=== PATIENT | male | born 1940 | race Two or more races ===

== ENCOUNTER 2016-06-10 03:50 | Emergency (ER) | payer OTHER ==
[~2016-06-10] VITALS: Ht 160 cm; Wt 59.0 kg
[2016-06-10] MEDS ORDERED: ONDANSETRON HCL 4MG/2ML VIAL IV STA (04:10)
[2016-06-10] MEDS ORDERED: SODIUM CHLORIDE 0.9% 1,000 ML IV ONE (04:10)
[2016-06-10] MEDS ORDERED: MORPHINE SULFATE 4 MG/ML CPJ (NOT FOR IM USE) IV STA (04:10)
[2016-06-10 04:33] LABS: BASOPHILS % 0.4 % (0.0-2.0); DIFFERENTIAL COMMENT 0; EOSINOPHILS % 4.5 % (0.0-5.0); HEMATOCRIT. 26.2 % (42.0-52.0); HEMOGLOBIN. 9.2 g/dL (14.0-18.0); LYMPHOCYTES % 18.1 % (20.0-50.0); MEAN CORPUSCULAR HEMOGLOBIN 36.4 pg (28.0-32.0); MEAN CORPUSCULAR VOLUME 103.9 fL (80.0-94.0); MEAN PLATELET VOLUME 9.7 fl (7.4-10.4); MONOCYTES % 9.9 % (2.0-8.0); NEUTROPHILS % 67.1 % (40.0-76.0); PLATELET 117 x1000/uL (130-400); RED BLOOD CELL COUNT 2.53 mill/uL (4.7-6.1); RED CELL DISTRIBUTION WIDTH 13.9 % (11.6-14.6); WHITE BLOOD COUNT 5.8 x1000/uL (4.5-11.0)
[2016-06-10 04:37] LABS: PARTIAL THROMBOPLASTIN TIME 30.9 sec (24.0-34.0); PROTHROMBIN TIME 10.8 sec
[2016-06-10 04:44] LABS: CALCIUM 8.2 mg/dL (8.5-10.1)
[2016-06-10 08:07] LABS: AMMONIA 30 uMol/L (<32); INDEX HEMOLYSI 1 (1-3)
[2016-06-10 08:13] LABS: ALBUMIN 2.1 g/dL (3.4-5.0); BILIRUBIN DIRECT < 0.1 mg/dL (0.0-0.2); INDEX HEMOLYSI 1 (1-3); INDEX ICTERIC 1 (1-4); INDEX LIPEMIC 1 (1-3)
[2016-06-10 08:16] LABS: ALANINE AMINOTRANSFERASE 24 IU/L (13-61)
[2016-06-10 16:15] VITALS: BP 157/65
== END 2016-06-10 16:30 ==
LOC: ER 03:51
DX: R62.7 Adult failure to thrive (principal); R27.0 Ataxia, unspecified; R51 Headache; E11.9 Type 2 diabetes mellitus without complications; G30.9 Alzheimer's disease, unspecified; I50.9 Heart failure, unspecified; I11.0 Hypertensive heart disease with heart failure; B19.10 Unspecified viral hepatitis B without hepatic coma
CPT/HCPCS: 36415; 70450; 71010; 80048; 80076; 82140; 82962; 85025; 85610; 85730; 93005; 93970; 96361; 96374; 96375; 99285; J2270; J2405; J7030; Z7610

== ENCOUNTER 2016-08-18 08:23 | Inpatient (IN) | payer OTHER ==
[~2016-08-18] VITALS: Ht 177.8 cm; Wt 66.2 kg
[2016-08-18] MEDS ORDERED: CLON0.1T PO (08:47)
[2016-08-18] MEDS ORDERED: GLUC100017 PO (08:47)
[2016-08-18] MEDS ORDERED: ASPI-1159 PO (08:47)
[2016-08-18] MEDS ORDERED: CHOL400T15 MT (08:47)
[2016-08-18] MEDS ORDERED: HYDR100T26 PO (08:47)
[2016-08-18] MEDS ORDERED: LISI40TA4 PO (08:47)
[2016-08-18] MEDS ORDERED: SODI650T PO (08:47)
[2016-08-18] MEDS ORDERED: POTA10CA42 PO (08:47)
[2016-08-18] MEDS ORDERED: FOLI1TAB3 PO (08:47)
[2016-08-18] MEDS ORDERED: GABA-529 PO (08:47)
[2016-08-18] MEDS ORDERED: FERR-63 PO (08:47)
[2016-08-18] MEDS ORDERED: MEMA10TA11 PO (08:47)
[2016-08-18] MEDS ORDERED: ONDANSETRON HCL 4MG/2ML VIAL IV STA (08:59)
[2016-08-18] MEDS ORDERED: SODIUM CHLORIDE 0.9% 1,000 ML IV ONE (08:59)
[2016-08-18] MEDS ORDERED: FAMOTIDINE 20MG/2ML VIAL IV STA (08:59)
[2016-08-18 09:23] LABS: BASOPHILS % 0.5 % (0.0-2.0); EOSINOPHILS % 0.7 % (0.0-5.0); HEMOGLOBIN. 9.7 g/dL (14.0-18.0); LYMPHOCYTES % 13.1 % (20.0-50.0); MEAN CORPUSCULAR HEMOGLOBIN 35.4 pg (28.0-32.0); MEAN CORPUSCULAR VOLUME 102.7 fL (80.0-94.0); MEAN PLATELET VOLUME 10.4 fl (7.4-10.4); MONOCYTES % 6.8 % (2.0-8.0); NEUTROPHILS % 78.9 % (40.0-76.0); PLATELET 115 x1000/uL (130-400); RED BLOOD CELL COUNT 2.73 mill/uL (4.7-6.1); RED CELL DISTRIBUTION WIDTH 13.7 % (11.6-14.6)
[2016-08-18 09:28] LABS: CHLORIDE 95 mEq/L (98-107)
[2016-08-18 09:34] LABS: CARBON DIOXIDE 24 mEq/L (21-32)
[2016-08-18 09:41] LABS: TROPONIN I 0.03 ng/mL (0.00-0.04)
[2016-08-18 09:54] LABS: INR 1.1; PROTHROMBIN TIME 11.5 sec
[2016-08-18 10:25] LABS: CLARITY URINE TURBID (CLEAR); COLOR URINE YELLOW (YELLOW); GLUCOSE URINE NEGATIVE (NEGATIVE); KETONES URINE NEGATIVE (NEGATIVE); LEUKOCYTE ESTERASE URINE 3+ (NEGATIVE); NITRITE URINE NEGATIVE (NEGATIVE); OCCULT BLOOD URINE TRACE (NEGATIVE); PROTEIN URINE 3+ (NEGATIVE); SPECIFIC GRAVITY URINE 1.015 (1.005-1.030); UROBILINOGEN URINE 0.2 E.U./dL (0.2-1.0)
[2016-08-18 11:45] VITALS: BP 152/70
[2016-08-18] MEDS ORDERED: FURO40TA5 PO (11:58)
[2016-08-18] MEDS ORDERED: ONDANSETRON HCL 4MG/2ML VIAL IV PRN (12:45)
[2016-08-18] MEDS ORDERED: HYDROCODONE/ACETAMINOPHEN 5/325MG TABLET PO PRN (12:45)
[2016-08-18] MEDS ORDERED: ACETAMINOPHEN 325MG TABLET PO PRN (12:45)
[2016-08-18] MEDS ORDERED: DEXTROSE 50% WATER 50ML SYRINGE IV PRN (13:00)
[2016-08-18] MEDS: MEMANTINE HCL 5MG TABLET PO SCH ×2 (13:31→21:37)
[2016-08-18] MEDS: GABAPENTIN 100MG CAPSULE PO SCH ×2 (13:31→21:37)
[2016-08-18] MEDS: HYDRALAZINE HCL 50MG TABLET PO SCH ×2 (13:31→21:37)
[2016-08-18] MEDS: SODIUM CHLORIDE 0.9% 1,000 ML IV SCH (13:32)
[2016-08-18] MEDS ORDERED: ESCI5SOL2 PO (17:01)
[2016-08-18] MEDS ORDERED: LAMI100T7 PO (17:01)
[2016-08-18] MEDS: BLOOD SUGAR DIAGNOSTIC STRIP TEST SCH ×2 (17:17→21:37)
[2016-08-18] MEDS: INSULIN LISPRO 100 UNITS/ML SUBCUT SCH ×2 (17:17→21:00)
[2016-08-18 20:00] VITALS: BP 156/73
[2016-08-19] VITALS: BP 153/58
[2016-08-19] MEDS: SODIUM CHLORIDE 0.9% 1,000 ML IV SCH ×3 (02:27→18:41)
[2016-08-19 04:00] VITALS: BP 156/78
[2016-08-19] MEDS: GABAPENTIN 100MG CAPSULE PO SCH ×3 (05:47→21:04)
[2016-08-19] MEDS: BLOOD SUGAR DIAGNOSTIC STRIP TEST SCH ×4 (06:31→21:05)
[2016-08-19] MEDS: INSULIN LISPRO 100 UNITS/ML SUBCUT SCH ×4 (07:16→21:00)
[2016-08-19 07:17] LABS: HEMATOCRIT. 26.1 % (42.0-52.0); MEAN CORPUSCULAR HEMOGLOBIN 35.7 pg (28.0-32.0); MEAN CORPUSCULAR VOLUME 103.7 fL (80.0-94.0); PLATELET 114 x1000/uL (130-400); RED BLOOD CELL COUNT 2.51 mill/uL (4.7-6.1); RED CELL DISTRIBUTION WIDTH 13.7 % (11.6-14.6)
[2016-08-19 07:30] LABS: CARBON DIOXIDE 21 mEq/L (21-32); CHLORIDE 101 mEq/L (98-107)
[2016-08-19 08:00] VITALS: BP 156/80
[2016-08-19] MEDS: HYDRALAZINE HCL 50MG TABLET PO SCH ×2 (08:50→21:05)
[2016-08-19] MEDS: MEMANTINE HCL 5MG TABLET PO SCH ×2 (08:50→21:05)
[2016-08-19 12:00] VITALS: BP 160/82
[2016-08-19 13:12] LABS: AMMONIA 31 uMol/L (<32)
[2016-08-19] MEDS: CEFTRIAXONE 1 G PREMIX 50 ML IV SCH (13:16)
[2016-08-19] MEDS ORDERED: UBID50TA3 PO ×2 (13:26→13:32)
[2016-08-19] MEDS: CLONIDINE 0.1MG TABLET PO PRN (15:51)
[2016-08-19 16:00] VITALS: BP 178/74
[2016-08-19 16:02] LABS: PLATELET ESTIMATE DECREASED
[2016-08-19 20:00] VITALS: BP 130/78
[2016-08-20] VITALS: BP 128/75
[2016-08-20 04:00] VITALS: BP 125/72
[2016-08-20 05:29] LABS: AMMONIA 17 uMol/L (<32)
[2016-08-20 06:12] LABS: CHLORIDE 106 mEq/L (98-107)
[2016-08-20] MEDS: BLOOD SUGAR DIAGNOSTIC STRIP TEST SCH ×4 (06:36→20:46)
[2016-08-20] MEDS: GABAPENTIN 100MG CAPSULE PO SCH ×3 (06:36→21:16)
[2016-08-20] MEDS: SODIUM CHLORIDE 0.9% 1,000 ML IV SCH ×2 (06:36→18:02)
[2016-08-20 07:03] LABS: BASOPHILS % 0.3 % (0.0-2.0); EOSINOPHILS % 2.2 % (0.0-5.0); HEMATOCRIT. 21.8 % (42.0-52.0); HEMOGLOBIN. 7.5 g/dL (14.0-18.0); LYMPHOCYTES % 11.9 % (20.0-50.0); MEAN CORPUSCULAR HEMOGLOBIN 35.8 pg (28.0-32.0); MEAN CORPUSCULAR VOLUME 103.6 fL (80.0-94.0); MEAN PLATELET VOLUME 10.7 fl (7.4-10.4); MONOCYTES % 10.8 % (2.0-8.0); NEUTROPHILS % 74.8 % (40.0-76.0); PLATELET 88 x1000/uL (130-400); RED BLOOD CELL COUNT 2.11 mill/uL (4.7-6.1)
[2016-08-20 07:16] LABS: CARBON DIOXIDE 19 mEq/L (21-32); CREATINE KINASE 772 IU/L (39-308)
[2016-08-20] MEDS: INSULIN LISPRO 100 UNITS/ML SUBCUT SCH ×4 (07:50→21:16)
[2016-08-20 08:00] VITALS: BP 188/90
[2016-08-20] MEDS: LAMIVUDINE 50 MG/5 ML PO SCH (08:52)
[2016-08-20] MEDS: MEMANTINE HCL 5MG TABLET PO SCH ×2 (08:52→21:19)
[2016-08-20] MEDS: CITALOPRAM HYDROBROMIDE 20MG TABLET PO SCH (08:52)
[2016-08-20] MEDS ORDERED: LAMIVUDINE 100 MG PO SCH (09:00)
[2016-08-20] MEDS: HYDRALAZINE HCL 50MG TABLET PO SCH ×2 (09:23→21:16)
[2016-08-20 12:00] VITALS: BP 151/88
[2016-08-20] MEDS: CEFTRIAXONE 1 G PREMIX 50 ML IV SCH (12:22)
[2016-08-20 16:00] VITALS: BP 170/72
[2016-08-20 18:56] LABS: CREATININE URINE (RAW) 79.4 mg/dl
[2016-08-20] MEDS: CLONIDINE 0.1MG TABLET PO PRN (19:45)
[2016-08-20 20:00] VITALS: BP 178/119
[2016-08-21] VITALS: BP 174/101
[2016-08-21 04:00] VITALS: BP 162/97
[2016-08-21] MEDS: GABAPENTIN 100MG CAPSULE PO SCH ×3 (05:06→21:16)
[2016-08-21] MEDS: CLONIDINE 0.1MG TABLET PO PRN (05:06)
[2016-08-21 06:43] LABS: BASOPHILS % 0.3 % (0.0-2.0); EOSINOPHILS % 1.3 % (0.0-5.0); HEMATOCRIT. 22.4 % (42.0-52.0); HEMOGLOBIN. 7.7 g/dL (14.0-18.0); LYMPHOCYTES % 7.5 % (20.0-50.0); MEAN CORPUSCULAR HEMOGLOBIN 35.4 pg (28.0-32.0); MEAN CORPUSCULAR VOLUME 103.6 fL (80.0-94.0); MEAN PLATELET VOLUME 10.3 fl (7.4-10.4); MONOCYTES % 7.8 % (2.0-8.0); NEUTROPHILS % 83.1 % (40.0-76.0); PLATELET 102 x1000/uL (130-400); RED BLOOD CELL COUNT 2.17 mill/uL (4.7-6.1); RED CELL DISTRIBUTION WIDTH 13.9 % (11.6-14.6)
[2016-08-21] MEDS: BLOOD SUGAR DIAGNOSTIC STRIP TEST SCH ×4 (06:46→20:49)
[2016-08-21 08:00] VITALS: BP 164/95
[2016-08-21] MEDS: CITALOPRAM HYDROBROMIDE 20MG TABLET PO SCH (09:05)
[2016-08-21] MEDS: MEMANTINE HCL 5MG TABLET PO SCH ×2 (09:05→21:16)
[2016-08-21] MEDS: HYDRALAZINE HCL 50MG TABLET PO SCH ×2 (09:06→21:16)
[2016-08-21] MEDS: LAMIVUDINE 50 MG/5 ML PO SCH (09:06)
[2016-08-21] MEDS: INSULIN LISPRO 100 UNITS/ML SUBCUT SCH ×4 (09:07→20:49)
[2016-08-21] MEDS: SODIUM CHLORIDE 0.9% 1,000 ML IV SCH ×2 (09:35→20:42)
[2016-08-21 11:19] LABS: HEMATOCRIT 22.3 % (42.0-52.0); HEMOGLOBIN 7.8 g/dL (14.0-18.0)
[2016-08-21 12:00] VITALS: BP 148/100
[2016-08-21] MEDS: TAMSULOSIN HCL 0.4MG SR CAPSULE PO SCH (12:48)
[2016-08-21] MEDS: CEFTRIAXONE 1 G PREMIX 50 ML IV SCH (12:52)
[2016-08-21 16:00] VITALS: BP 108/60
[2016-08-21 20:00] VITALS: BP 114/64
[2016-08-22] VITALS (14 sets, daily range): BP systolic 107–139; BP diastolic 55–84
[2016-08-22] MEDS: GABAPENTIN 100MG CAPSULE PO SCH ×3 (06:06→22:07)
[2016-08-22 06:24] LABS: BASOPHILS % 0.3 % (0.0-2.0); EOSINOPHILS % 0.7 % (0.0-5.0); LYMPHOCYTES % 9.9 % (20.0-50.0); MEAN CORPUSCULAR HEMOGLOBIN 35.8 pg (28.0-32.0); MEAN CORPUSCULAR VOLUME 104.1 fL (80.0-94.0); MEAN PLATELET VOLUME 10.1 fl (7.4-10.4); MONOCYTES % 8.7 % (2.0-8.0); NEUTROPHILS % 80.4 % (40.0-76.0); PLATELET 87 x1000/uL (130-400); RED BLOOD CELL COUNT 1.55 mill/uL (4.7-6.1); RED CELL DISTRIBUTION WIDTH 14.1 % (11.6-14.6)
[2016-08-22 06:49] LABS: HEMATOCRIT. 16.2 % (42.0-52.0); HEMOGLOBIN. 5.6 g/dL (14.0-18.0)
[2016-08-22] MEDS: INSULIN LISPRO 100 UNITS/ML SUBCUT SCH ×4 (07:50→21:00)
[2016-08-22] MEDS: BLOOD SUGAR DIAGNOSTIC STRIP TEST SCH ×4 (08:17→21:00)
[2016-08-22] MEDS: MEMANTINE HCL 5MG TABLET PO SCH ×2 (08:27→22:07)
[2016-08-22] MEDS: TAMSULOSIN HCL 0.4MG SR CAPSULE PO SCH (08:27)
[2016-08-22] MEDS: CITALOPRAM HYDROBROMIDE 20MG TABLET PO SCH (08:27)
[2016-08-22] MEDS: HYDRALAZINE HCL 50MG TABLET PO SCH ×2 (08:27→22:07)
[2016-08-22] MEDS: CEFTRIAXONE 1 G PREMIX 50 ML IV SCH (16:28)
[2016-08-22] MEDS: LAMIVUDINE 50 MG/5 ML PO SCH (16:45)
[2016-08-22 18:11] LABS: BASOPHILS % 0.3 % (0.0-2.0); EOSINOPHILS % 0.4 % (0.0-5.0); HEMATOCRIT. 23.1 % (42.0-52.0); HEMOGLOBIN. 7.5 g/dL (14.0-18.0); LYMPHOCYTES % 9.3 % (20.0-50.0); MEAN CORPUSCULAR HEMOGLOBIN 33.1 pg (28.0-32.0); MEAN CORPUSCULAR VOLUME 101.5 fL (80.0-94.0); MEAN PLATELET VOLUME 9.8 fl (7.4-10.4); MONOCYTES % 9.7 % (2.0-8.0); NEUTROPHILS % 80.3 % (40.0-76.0); PLATELET 92 x1000/uL (130-400); RED BLOOD CELL COUNT 2.28 mill/uL (4.7-6.1); RED CELL DISTRIBUTION WIDTH 19.3 % (11.6-14.6)
[2016-08-23 00:15] VITALS: BP 110/69
[2016-08-23 04:00] VITALS: BP 126/67
[2016-08-23] MEDS: GABAPENTIN 100MG CAPSULE PO SCH ×3 (05:46→21:00)
[2016-08-23 06:10] LABS: BASOPHILS % 0.4 % (0.0-2.0); EOSINOPHILS % 1.9 % (0.0-5.0); HEMATOCRIT. 22.6 % (42.0-52.0); HEMOGLOBIN. 7.9 g/dL (14.0-18.0); LYMPHOCYTES % 8.7 % (20.0-50.0); MEAN CORPUSCULAR HEMOGLOBIN 33.5 pg (28.0-32.0); MEAN CORPUSCULAR VOLUME 96.2 fL (80.0-94.0); MEAN PLATELET VOLUME 9.7 fl (7.4-10.4); MONOCYTES % 8.7 % (2.0-8.0); NEUTROPHILS % 80.3 % (40.0-76.0); PLATELET 103 x1000/uL (130-400); RED BLOOD CELL COUNT 2.35 mill/uL (4.7-6.1); RED CELL DISTRIBUTION WIDTH 19.3 % (11.6-14.6)
[2016-08-23] MEDS: BLOOD SUGAR DIAGNOSTIC STRIP TEST SCH ×4 (06:40→20:51)
[2016-08-23] MEDS: INSULIN LISPRO 100 UNITS/ML SUBCUT SCH ×4 (07:42→20:51)
[2016-08-23 08:00] VITALS: BP 138/90
[2016-08-23 09:09] LABS: ANTI-MYELOPEROXIDASE AB < 9.0 U/mL (0.0-9.0); ANTI-PROTEINASE 3 ABS < 3.5 U/mL (0.0-3.5)
[2016-08-23] MEDS: LAMIVUDINE 50 MG/5 ML PO SCH (09:13)
[2016-08-23] MEDS: HYDRALAZINE HCL 50MG TABLET PO SCH ×2 (09:13→20:55)
[2016-08-23] MEDS: CITALOPRAM HYDROBROMIDE 20MG TABLET PO SCH (09:13)
[2016-08-23] MEDS: MEMANTINE HCL 5MG TABLET PO SCH ×2 (09:13→20:54)
[2016-08-23] MEDS: TAMSULOSIN HCL 0.4MG SR CAPSULE PO SCH (09:14)
[2016-08-23 12:00] VITALS: BP 130/72
[2016-08-23] MEDS: CEFTRIAXONE 1 G PREMIX 50 ML IV SCH (12:41)
[2016-08-23 16:00] VITALS: BP 125/75
[2016-08-23 20:55] VITALS: BP 133/83
[2016-08-24] VITALS (7 sets, daily range): BP systolic 116–139; BP diastolic 72–82
[2016-08-24] MEDS: GABAPENTIN 100MG CAPSULE PO SCH ×3 (05:51→20:51)
[2016-08-24] MEDS: BLOOD SUGAR DIAGNOSTIC STRIP TEST SCH ×4 (07:20→20:46)
[2016-08-24] MEDS: INSULIN LISPRO 100 UNITS/ML SUBCUT SCH ×4 (07:50→20:47)
[2016-08-24] MEDS: MEMANTINE HCL 5MG TABLET PO SCH ×2 (09:21→20:53)
[2016-08-24] MEDS: CITALOPRAM HYDROBROMIDE 20MG TABLET PO SCH (09:21)
[2016-08-24] MEDS: TAMSULOSIN HCL 0.4MG SR CAPSULE PO SCH (09:21)
[2016-08-24] MEDS: LAMIVUDINE 50 MG/5 ML PO SCH (09:21)
[2016-08-24] MEDS: HYDRALAZINE HCL 50MG TABLET PO SCH ×2 (09:30→20:51)
[2016-08-24] MEDS: CEFTRIAXONE 1 G PREMIX 50 ML IV SCH (13:15)
[2016-08-24 14:19] LABS: ATYPICAL P-ANCA <1:20 titer (Neg:<1:20); CYTOPLASMIC C-ANCA <1:20 titer (Neg:<1:20); PERINUCLEAR P-ANCA <1:20 titer (Neg:<1:20)
[2016-08-25] VITALS: BP 134/79
[2016-08-25 04:00] VITALS: BP 139/78
[2016-08-25] MEDS: BLOOD SUGAR DIAGNOSTIC STRIP TEST SCH ×4 (05:59→21:00)
[2016-08-25] MEDS: GABAPENTIN 100MG CAPSULE PO SCH ×3 (05:59→22:42)
[2016-08-25 06:21] LABS: BASOPHILS % 0.3 % (0.0-2.0); EOSINOPHILS % 2.3 % (0.0-5.0); HEMATOCRIT. 22.1 % (42.0-52.0); HEMOGLOBIN. 7.5 g/dL (14.0-18.0); MEAN CORPUSCULAR HEMOGLOBIN 33.3 pg (28.0-32.0); MEAN PLATELET VOLUME 9.6 fl (7.4-10.4); MONOCYTES % 8.4 % (2.0-8.0); PLATELET 118 x1000/uL (130-400); RED BLOOD CELL COUNT 2.25 mill/uL (4.7-6.1); RED CELL DISTRIBUTION WIDTH 18.8 % (11.6-14.6)
[2016-08-25] MEDS: INSULIN LISPRO 100 UNITS/ML SUBCUT SCH ×4 (07:50→21:00)
[2016-08-25 08:04] VITALS: BP 144/88
[2016-08-25] MEDS: LAMIVUDINE 50 MG/5 ML PO SCH (09:25)
[2016-08-25] MEDS: CITALOPRAM HYDROBROMIDE 20MG TABLET PO SCH (09:26)
[2016-08-25] MEDS: MEMANTINE HCL 5MG TABLET PO SCH ×2 (09:26→22:42)
[2016-08-25] MEDS: TAMSULOSIN HCL 0.4MG SR CAPSULE PO SCH (09:26)
[2016-08-25] MEDS: HYDRALAZINE HCL 50MG TABLET PO SCH ×2 (09:26→22:42)
[2016-08-25 12:11] VITALS: BP 144/78
[2016-08-25] MEDS: CEFTRIAXONE 1 G PREMIX 50 ML IV SCH (12:49)
[2016-08-25] MEDS: OXYBUTYNIN CHLORIDE 5MG TABLET PO SCH ×2 (13:30→22:43)
[2016-08-25 16:12] VITALS: BP 128/73
[2016-08-25 20:00] VITALS: BP 126/82
[2016-08-25 20:26] LABS: HEMATOCRIT 22.2 % (42.0-52.0); HEMOGLOBIN 7.6 g/dL (14.0-18.0)
[2016-08-25 21:51] LABS: HEPATITIS B CORE AB IGM NEGATIVE
[2016-08-25 21:52] LABS: HEPATITIS A AB IGM NEGATIVE (NEGATIVE)
[2016-08-25 22:20] LABS: HEPATITIS B SURFACE ANTIGEN REACTIVE PEND CONFIR
[2016-08-26] VITALS: BP 150/84
[2016-08-26 04:00] VITALS: BP 147/79
[2016-08-26] MEDS: GABAPENTIN 100MG CAPSULE PO SCH ×2 (06:20→12:51)
[2016-08-26] MEDS: OXYBUTYNIN CHLORIDE 5MG TABLET PO SCH ×2 (06:20→12:51)
[2016-08-26] MEDS: INSULIN LISPRO 100 UNITS/ML SUBCUT SCH ×2 (06:20→13:07)
[2016-08-26] MEDS: BLOOD SUGAR DIAGNOSTIC STRIP TEST SCH ×2 (06:20→12:51)
[2016-08-26 08:11] VITALS: BP 132/90
[2016-08-26] MEDS: TAMSULOSIN HCL 0.4MG SR CAPSULE PO SCH (08:19)
[2016-08-26] MEDS: HYDRALAZINE HCL 50MG TABLET PO SCH (08:19)
[2016-08-26] MEDS: CITALOPRAM HYDROBROMIDE 20MG TABLET PO SCH (08:19)
[2016-08-26] MEDS: MEMANTINE HCL 5MG TABLET PO SCH (08:19)
[2016-08-26] MEDS: LAMIVUDINE 50 MG/5 ML PO SCH (08:21)
[2016-08-26] MEDS: CEFTRIAXONE 1 G PREMIX 50 ML IV SCH (12:51)
[2016-08-26 12:57] VITALS: BP 123/69
[2016-08-26 16:30] VITALS: BP_SYST 102; BP_SYST 118; BP_DIAS 58; BP_DIAS 80
[2016-08-27 13:08] LABS: ALPHA FETOPROTEIN TUMOR MARKER 1.6 ng/mL (0.0-8.3)
[2016-08-28 14:19] LABS: HBSAG CONFIRMATION POSITIVE (.); HBSAG SCREEN Confirm. indicated (Negative)
== END 2016-08-26 17:00 | disposition hospice, home (50) | DRG 682 ==
LOC: ER 08:43 → 6WST 10:01 → EDBEDREQ 10:03 → ENRESERV 10:15
PROVIDERS: ADMIT Hospitalist; ATTEND Hospitalist
PROC: 0T9B70Z Drainage of Bladder with Drainage Device, Via Natural or Artificial Opening (ICD-10-PCS; 2016-08-21)
PROC: 30233N1 Transfusion of Nonautologous Red Blood Cells into Peripheral Vein, Percutaneous Approach (ICD-10-PCS; 2016-08-22)
PROC: 0T2BX0Z Change Drainage Device in Bladder, External Approach (ICD-10-PCS; principal; 2016-08-26)
DX: N17.0 Acute kidney failure with tubular necrosis (principal); E43 Unspecified severe protein-calorie malnutrition; E87.1 Hypo-osmolality and hyponatremia; I13.0 Hypertensive heart and chronic kidney disease with heart failure and stage 1 through stage 4 chronic kidney disease, or unspecified chronic kidney disease; N39.0 Urinary tract infection, site not specified; B19.10 Unspecified viral hepatitis B without hepatic coma; C22.0 Liver cell carcinoma; N13.8 Other obstructive and reflux uropathy; N18.4 Chronic kidney disease, stage 4 (severe); D53.9 Nutritional anemia, unspecified; D69.6 Thrombocytopenia, unspecified; E11.21 Type 2 diabetes mellitus with diabetic nephropathy; E11.22 Type 2 diabetes mellitus with diabetic chronic kidney disease; E87.5 Hyperkalemia; F02.80 Dementia in other diseases classified elsewhere, unspecified severity, without behavioral disturbance, psychotic disturbance, mood disturbance, and anxiety; G30.9 Alzheimer's disease, unspecified; G89.4 Chronic pain syndrome; I50.9 Heart failure, unspecified; K74.69 Other cirrhosis of liver; K80.20 Calculus of gallbladder without cholecystitis without obstruction; N40.1 Benign prostatic hyperplasia with lower urinary tract symptoms; N50.0 Atrophy of testis; R32 Unspecified urinary incontinence; R62.7 Adult failure to thrive; Z51.5 Encounter for palliative care; T46.5X5A Adverse effect of other antihypertensive drugs, initial encounter; R31.9 Hematuria, unspecified; R00.1 Bradycardia, unspecified; Z74.01 Bed confinement status; Z86.61 Personal history of infections of the central nervous system; Y92.89 Other specified places as the place of occurrence of the external cause
CPT/HCPCS: 36415; 74176; 76700; 76857; 80048; 80053; 81001; 82105; 82140; 82550; 82575; 82962; 83520; 83605; 83690; 83735; 84156; 84484; 85014; 85018; 85025; 85610; 86256; 86705; 86709; 86803; 86850; 86900; 86920; 87015; 87045; 87086; 87340; 87427; 87449; 87493; 92610; 93005; 93970; 96361; 96374; 96375; 99285; A6261; J0696; J1815; J2405; J3490; J7030; J7040; J7050; P9016; A4315